=== PATIENT | male | born 1975 | race Two or more races ===

== ENCOUNTER 2020-06-30 07:27 | Emergency (ER) | payer MEDICAID, OTHER, SELFPAY ==
[~2020-06-30] VITALS: Ht 157.5 cm; Wt 95.0 kg
[2020-06-30] MEDS ORDERED: SODIUM CHLORIDE FLUSH 10ML SYR IVF ONE (08:00)
[2020-06-30] MEDS ORDERED: SODIUM CHLORIDE 0.9% 1,000ML IVBOLUS ONE (08:00)
[2020-06-30] MEDS ORDERED: DIPH,PERTUSS(ACELL),TET VAC/PF 0.5 ML IM-VACC ONE ×2 (08:00→09:38)
[2020-06-30 08:33] LABS: MEAN CORPUSCULAR HEMOGLOBIN 33.5 pg (27.5-34.5); MEAN PLATELET VOLUME 8.6 fL (7.4-10.4); PLATELET COUNT 331 x10^3/uL (130-400); RED BLOOD COUNT 4.63 x10^6/uL (4.38-5.82); RED CELL DISTRIBUTION WIDTH 12.8 % (9.4-14.8)
[2020-06-30 08:42] LABS: ALBUMIN 4.4 g/dL (3.4-5.0); ANION GAP 11 mmol/L (5-15); CALCIUM 9.5 mg/dL (8.5-10.1); CHLORIDE 106 mmol/L (98-107)
[2020-06-30 08:47] LABS: ALANINE AMINOTRANSFERASE 375 U/L (12-78); ALKALINE PHOSPHATASE 120 U/L (45-117); BILIRUBIN,TOTAL 0.4 mg/dL (0.2-1.0); CREATININE 1.38 mg/dL (0.7-1.3); MD YES; TOTAL PROTEIN 8.8 g/dL (6.4-8.2)
[2020-06-30] MEDS ORDERED: OMNIPAQUE 350 MG/ML, 100ML BOTTLE ONE (09:00)
[2020-06-30 09:08] LABS: <PLATELET ESTIMATE> ADEQUATE; <PLT MORPHOLOGY> NORMAL PLT MORPH; <RBC MORPHOLOGY> NORMAL; BAND#(MANUAL) 0.18 x10^3/uL; BANDS%(MANUAL) 1 % (0-7); LYMPH#(MANUAL) 0.92 x10^3/uL (1-3.4); LYMPHS% (MANUAL) 5 % (22-44); MONOS#(MANUAL) 0.73 x10^3/uL (0.3-2.7); MONOS% (MANUAL) 4 % (2-9); SEG#(MANUAL) 16.47 x10^3/uL (1.8-6.8); SEGS% (MANUAL) 90 % (42-75)
[2020-06-30] MEDS ORDERED: NEOSPORIN OINT. PKT 1 PACKET ONE (09:57)
[2020-06-30 10:24] LABS: AMPHETAMINE SCREEN, URINE Negative (Negative); BARBITURATE SCREEN, URINE Negative (Negative); BENZODIAZEPINE SCREEN, URINE Negative (Negative); CANNABINOID SCREEN, URINE Negative (Negative); COCAINE SCREEN, URINE Positive (Negative); METHADONE SCREEN, URINE Negative (Negative); OPIATE SCREEN, URINE Negative (Negative)
[2020-06-30 10:39] LABS: TROPONIN I < 0.015 ng/mL (0.000-0.045)
[2020-06-30 11:50] VITALS: BP 145/98
== END 2020-06-30 11:59 | disposition home or self-care (01) ==
LOC: ED 10:03
DX: S93.401A Sprain of unspecified ligament of right ankle, initial encounter (principal); S16.1XXA Strain of muscle, fascia and tendon at neck level, initial encounter; F10.220 Alcohol dependence with intoxication, uncomplicated; F14.10 Cocaine abuse, uncomplicated; R94.5 Abnormal results of liver function studies; R00.0 Tachycardia, unspecified; V43.52XA Car driver injured in collision with other type car in traffic accident, initial encounter; Y90.9 Presence of alcohol in blood, level not specified; Y93.89 Activity, other specified; Y92.488 Other paved roadways as the place of occurrence of the external cause; Y99.8 Other external cause status
CPT/HCPCS: 36415; 70450; 71260; 72125; 73610; 74177; 80053; 80307; 84484; 85025; 90471; 90715; 93005; 96360; 99285; J7030; Q9967